=== PATIENT | female | born 1990 ===

== ENCOUNTER 2020-11-25 15:00 | Inpatient (IN) | payer OTHER ==
[~2020-11-25] VITALS: Ht 149.9 cm; Wt 83.5 kg
== END 2020-12-03 10:03 | disposition home or self-care (01) | DRG 807 ==
LOC: LDR 12-01 11:09 → SURG-SUITE 12-01 18:36 → OB/GYN 12-15 15:00
PROVIDERS: ADMIT Obstetrics & Gynecology; ATTEND Obstetrics & Gynecology
PROC: 10E0XZZ Delivery of Products of Conception, External Approach (ICD-10-PCS; principal; 2020-12-01)
PROC: 0W8NXZZ Division of Female Perineum, External Approach (ICD-10-PCS; 2020-12-01)
PROC: 4A1HXFZ Monitoring of Products of Conception, Cardiac Rhythm, External Approach (ICD-10-PCS; 2020-12-01)
DX: O80 Encounter for full-term uncomplicated delivery (principal); Z37.0 Single live birth; Z3A.38 38 weeks gestation of pregnancy; Z20.822 Contact with and (suspected) exposure to COVID-19

== ENCOUNTER → 2020-11-27 | Outpatient (CLI) | payer OTHER | END | disposition home or self-care (01) | LOC: NST 00:16 | PROVIDERS: ATTEND Obstetrics & Gynecology | DX: Z34.83 Encounter for supervision of other normal pregnancy, third trimester (principal) ==

== ENCOUNTER 2021-03-18 06:46 | Day surgery (SDC) | payer OTHER | END 2021-03-18 12:05 | disposition home or self-care (01) | LOC: CIR.AMB 06:46 | PROVIDERS: ATTEND Obstetrics & Gynecology | DX: Z30.2 Encounter for sterilization (principal); Z20.822 Contact with and (suspected) exposure to COVID-19 ==